=== PATIENT | female | born 2000 | race Two or more races ===

== ENCOUNTER 2021-12-07 01:02 | Emergency (ER) | payer OTHER ==
[~2021-12-07] VITALS: Ht 154.9 cm; Wt 81.8 kg
[2021-12-07] MEDS ORDERED: MORPHINE SULFATE 4 MG/ML INJ. IVP ONE (01:45)
[2021-12-07 02:11] LABS: BASO # 0.1 x10^3/uL (0.0-0.2); BASO % 1 % (0-3); EOS # 0.1 x10^3/uL (0.0-0.7); EOS % 1 % (0-3); HEMATOCRIT 34.5 % (36.0-47.0); HEMOGLOBIN 11.5 g/dL (12.0-15.5); LYMPH # 1.3 x10^3/uL (1.0-4.8); LYMPH % 12 % (24-48); MEAN CORPUSCULAR HEMOGLOBIN 27 pg (25-35); MEAN CORPUSCULAR HGB CONC 33 g/dL (31-37); MEAN CORPUSCULAR VOLUME 82 fL (79-100); MONO # 0.9 x10^3/uL (0.0-1.1); MONO % 8 % (0-9); NEUT # 8.8 x10^3/uL (1.8-7.7); NEUT % 79 % (31-73); PLATELET COUNT 425 x10^3/uL (140-400); RED BLOOD COUNT 4.22 x10^6/uL (3.50-5.40); RED CELL DISTRIBUTION WIDTH 14.5 % (11.5-14.5); WHITE BLOOD COUNT 11.1 x10^3/uL (4.0-11.0)
[2021-12-07 02:26] LABS: PROTHROMBIN TIME PATIENT 13.4 SEC (11.7-14.0)
[2021-12-07 02:44] LABS: BACTERIA,URINE FEW /HPF (0-FEW); WBC,URINE 20-40 /HPF (0-4)
--- NOTE | 2021-12-07 03:07 | RAD ---
Transvaginal OB ultrasound HISTORY: First trimester bleeding after pill. Transvaginal sonographic examination performed multiple static images were obtained. The endometrium is homogeneous measures 1.4 cm in thickness. There is no gestational sac seen. Mild simple free fluid in the cul-de-sac. The ovaries appear normal with normal blood flow. IMPRESSION: No seen. Findings suggest complete . Recommend correlation with serial quantitative beta hCG. If the beta hCG fails to fill precipitously to 0 short-term follow-up ultrasound should be performed. Electronically signed by: Sonido Virk III, MD (12/07/2021 3:05 AM) [facility]
[2021-12-07] MEDS ORDERED: IBUP-1007 PO (03:30)
--- NOTE | 2021-12-07 03:31 | PHYS DOC ---
Past Medical History Past Surgical History: Appendectomy Smoking Status: Never Smoker Alcohol Use: None General Adult EDM: Chief Complaint: VAGINAL BLEEDING HPI: HPI: Patient is a 21 year old female who is approximately 7 weeks who presents to the emergency department today with complaints of abdominal cramping and vaginal bleeding. Patient states that a week ago she took mifepristone and misoprostol to terminate her . She states that since that time she has had abdominal cramping that is worse tonight, as well as vaginal bleeding. She denies passing any tissue, but has passed several clots. She denies any chest pain, shortness of breath, syncope or near syncope. She states given her continued pain and bleeding she was concerned for an incomplete and decided to present here to the emergency department for evaluation. Review of Systems: Review of Systems: Constitutional: Denies fever or chills. [] Eyes: Denies change in visual acuity. [] HENT: Denies nasal congestion or sore throat. [] Respiratory: Denies cough or shortness of breath. [] Cardiovascular: Denies chest pain or edema. [] GI: Denies nausea, vomiting, bloody stools or diarrhea. [] : Denies dysuria. [] Musculoskeletal: Denies back pain or joint pain. [] Integument: Denies rash. [] Neurologic: Denies headache, focal weakness or sensory changes. [] Endocrine: Denies polyuria or polydipsia. [] Lymphatic: Denies swollen glands. [] Psychiatric: Denies depression or anxiety. [] Heart Score: C/O Chest Pain: No Family History: Family History: Noncontributory Current Medications: Current Medications Medications (Trade) Dose Ordered Sig/[facility] Start Time Stop Time Status Last Admin Dose Admin Morphine Sulfate (Morphine Sulfate) 4 mg 1X ONCE 12/07/21 01:45 12/07/21 01:51 DC 12/07/21 02:07 4 MG Allergies: Allergies: Allergies Coded Allergies Type Severity Reaction Last Updated Verified No Known Drug Allergies 12/07/21 No Physical Exam: PE: Constitutional: Well developed, well nourished, no acute distress, non-toxic appearance. [] HENT: Normocephalic, atraumatic, bilateral external ears normal, oropharynx moist, no oral exudates, nose normal. [] Eyes: PERRLA, EOMI, conjunctiva normal, no discharge. [] Neck: Normal range of motion, no tenderness, supple, no stridor. [] Cardiovascular:Heart rate regular rhythm, no murmur [] Lungs & Thorax: Bilateral breath sounds clear to auscultation [] Abdomen: Bowel sounds normal, soft, no tenderness, no masses, no pulsatile masses. [] Skin: Warm, dry, no erythema, no rash. [] Back: No tenderness, no CVA tenderness. [] Extremities: No tenderness, no cyanosis, no clubbing, ROM intact, no edema. [] Neurologic: Alert and oriented X 3, normal motor function, normal sensory fun ction, no focal deficits noted. [] Psychologic: Affect normal, judgement normal, mood normal. [] Current Patient Data: Labs: Laboratory Tests Test 12/07/21 02:00 12/07/21 02:01 White Blood Count 11.1 x10^3/uL (4.0-11.0) H Red Blood Count 4.22 x10^6/uL (3.50-5.40) Hemoglobin 11.5 g/dL (12.0-15.5) L Hematocrit 34.5 % (36.0-47.0) L Mean Corpuscular Volume 82 fL (79-100) Mean Corpuscular Hemoglobin 27 pg (25-35) Mean Corpuscular Hemoglobin Concent 33 g/dL (31-37) Red Cell Distribution Width 14.5 % (11.5-14.5) Platelet Count 425 x10^3/uL (140-400) H Neutrophils (%) (Auto) 79 % (31-73) H Lymphocytes (%) (Auto) 12 % (24-48) L Monocytes (%) (Auto) 8 % (0-9) Eosinophils (%) (Auto) 1 % (0-3) Basophils (%) (Auto) 1 % (0-3) Neutrophils # (Auto) 8.8 x10^3/uL (1.8-7.7) H Lymphocytes # (Auto) 1.3 x10^3/uL (1.0-4.8) Monocytes # (Auto) 0.9 x10^3/uL (0.0-1.1) Eosinophils # (Auto) 0.1 x10^3/uL (0.0-0.7) Basophils # (Auto) 0.1 x10^3/uL (0.0-0.2) Prothrombin Time 13.4 SEC (11.7-14.0) Prothrombin Time INR 1.1 (0.8-1.1) Activated Partial Thromboplast Time 33 SEC (24-38) Maternal Serum HCG Beta Subunit 488 mIU/mL (0-5) H Urine Collection Type Unknown Urine Color (Auto) Yellow Urine Turbidity Clear Urine pH (Auto) 5.5 (<5.0-8.0) Urine Specific Williams 1.029 (1.000-1.030) Urine Protein (Auto) 30 mg/dL (Negative) Urine Glucose (Auto)(UA) Negative mg/dL (Negative) Urine Ketones (Auto) 10 mg/dL (Negative) Urine Blood (Auto) Large (Negative) Urine Nitrite Negative (Negative) Urine Bilirubin (Auto) Negative (Negative) Urine Urobilinogen (Auto) Normal mg/dL (Normal) Urine Leukocyte Esterase (Auto) Large (Negative) Urine RBC 11-20 /HPF (0-2) Urine WBC 20-40 /HPF (0-4) Urine Squamous Epithelial Cells Few /LPF Urine Bacteria Few /HPF (0-FEW) Urine Mucus Marked /LPF Laboratory Tests 12/07/21 02:00 Vital Signs: Vital Signs Date Time Temp Pulse Resp B/P (MAP) Pulse Ox O2 Delivery O2 Flow Rate FiO2 12/07/21 02:07 99 Room Air 12/07/21 01:12 98.6 99 16 188/121 (143) 98.6 Radiology/Procedures: Radiology/Procedures: Transvaginal OB ultrasound HISTORY: First trimester bleeding after pill. Transvaginal sonographic examination performed multiple static images were obtained. The endometrium is homogeneous measures 1.4 cm in thickness. There is no gestational sac seen. Mild simple free fluid in the cul-de-sac. The ovaries appear normal with normal blood flow. IMPRESSION: No seen. Findings suggest complete . Recommend correlation with serial quantitative beta hCG. If the beta hCG fails to fill precipitously to 0 short-term follow-up ultrasound should be performed. Electronically signed by: Sonido Virk III, MD (12/07/2021 3:05 AM) [facility] Impression: Complete AB Course & Med Decision Making: Course & Med Decision Making Patient remained hemodynamically stable while in the emergency department. She was evaluated at bedside with a physical exam. Basic labs obtained and shows B hcg of 488. She is Rh+ and therefore does not need RhoGAM. Ultrasound shows an empty uterus consistent with a complete AB. Her pain was treated with morph ine. We will discharge her home with a short course of ibuprofen and have her follow-up with [facility] as scheduled for repeat beta-hCG. Dragon Disclaimer: Dragon Disclaimer: This electronic medical record was generated, in whole or in part, using a voice recognition dictation system. Departure Departure Impression: Primary Impression: Complete Disposition: HOME / SELF CARE / HOMELESS Condition: IMPROVED Patient Instructions: Miscarriage Additional Instructions: Please follow up with [facility] as scheduled. Scripts Ibuprofen (IBUPROFEN) 600 Mg Tablet 600 MG PO PRN Q6HRS PRN for INFLAMMATION, #15 TAB Prov: KIM JOHNSTON MD 12/07/21 KIM JOHNSTON MD December 07, 2021 03:31
[2021-12-07 03:44] VITALS: BP 145/84
[2021-12-07] MEDS ORDERED: HYDROcodone/APAP 5/325MG 1 TAB TABLET PO ONE (03:45)
== END 2021-12-07 03:52 | disposition home or self-care (01) ==
LOC: ER 01:02
DX: O03.9 Complete or unspecified spontaneous abortion without complication (principal)
CPT/HCPCS: 36415; 76801; 76817; 81001; 84702; 85025; 85610; 85730; 86850; 86900; 86901; 87086; 96374; 99284; J2270